=== PATIENT | female | born 1980 | race Caucasian/White ===

== ENCOUNTER 2016-05-29 19:22 | Emergency (ER) | payer OTHER | END 2016-05-29 22:28 | disposition home or self-care (01) | LOC: ER 19:22 | DX: N76.2 Acute vulvitis (principal); J45.909 Unspecified asthma, uncomplicated; F41.9 Anxiety disorder, unspecified; G43.909 Migraine, unspecified, not intractable, without status migrainosus; E66.9 Obesity, unspecified; F17.210 Nicotine dependence, cigarettes, uncomplicated; Z88.0 Allergy status to penicillin; Z88.5 Allergy status to narcotic agent; Z88.6 Allergy status to analgesic agent; Z68.42 Body mass index [BMI] 45.0-49.9, adult ==

== ENCOUNTER 2016-06-11 23:01 | Emergency (ER) | payer OTHER | END 2016-06-12 03:20 | disposition home or self-care (01) | LOC: ER 23:01 | DX: S80.12XA Contusion of left lower leg, initial encounter (principal); J45.909 Unspecified asthma, uncomplicated; F41.9 Anxiety disorder, unspecified; G43.909 Migraine, unspecified, not intractable, without status migrainosus; F17.210 Nicotine dependence, cigarettes, uncomplicated; Z88.0 Allergy status to penicillin; Z88.5 Allergy status to narcotic agent; Z88.7 Allergy status to serum and vaccine; W01.0XXA Fall on same level from slipping, tripping and stumbling without subsequent striking against object, initial encounter | CPT/HCPCS: 96372; J2550 ==

== ENCOUNTER 2016-08-19 15:11 | Emergency (ER) | payer OTHER | END 2016-08-19 18:20 | disposition left against medical advice (07) | LOC: ER 15:11 | DX: R10.9 Unspecified abdominal pain (principal); G43.909 Migraine, unspecified, not intractable, without status migrainosus; F17.210 Nicotine dependence, cigarettes, uncomplicated; Z87.442 Personal history of urinary calculi; Z88.0 Allergy status to penicillin; Z88.5 Allergy status to narcotic agent; Z88.8 Allergy status to other drugs, medicaments and biological substances; Z85.53 Personal history of malignant neoplasm of renal pelvis ==